=== PATIENT | male | born 1960 | race Caucasian/White ===

== ENCOUNTER 2016-02-29 02:02 | Emergency (ER) ==
[2016-02-29 02:13] VITALS: BP 157/66
--- NOTE | 2016-02-29 02:30 | PROVIDER DOCUMENTATION ---
HPI-General Adult - General Source: patient <Juan Jose Mares - Last Filed: 02/29/16 03:37> - General Source: patient - History of Present Illness -Gen Adult Nature of Presenting Problems: 55 y/o m presents to the ed with flu symptoms X 4 days. pt states he has congestion but denies sore throat. pt also states he has chills but denies any fever. Location of Pain/Injury: reports: generalized Quality of Pain: reports: aching Severity: reports: mild Onset/Duration: reports: 4 days ago Timing: reports: still present Associated Symptoms: reports: fever/chills, sinus congestion/drainage Similar Symptoms Previously?: No Recently seen or treated by another doctor?: No <Tayler Johnson - Last Filed: 02/29/16 12:55> - General Chief Complaint: Cold Symptoms Stated Complaint: FLU SX, BURNING RASH ON RT LEG Time Seen by Provider: 02/29/16 02:19 Allergies/Adverse Reactions: Patient Allergies Allergy/AdvReac Type Severity Reaction Status Date / Time strawberry [[place]] Allergy ANAPHYLAXIS Verified 02/29/16 02:40 Review of Systems - Adult - REVIEW OF SYSTEMS - ADULT Constitutional: reports: chills. denies: fever Ears, Nose, Mouth & Throat: denies: throat pain, throat swelling Respiratory: denies: shortness of breath, wheezing <Tayler Johnson - Last Filed: 02/29/16 12:55> Past History - Adult - PAST MEDICAL HISTORY-ADULT Review of Records: reports: Old Records Reviewed, Nursing Assessment Review, Medications Reviewed Cardiovascular: reports: HTN, other (perip edema). denies: blood clots Genitourinary: reports: kidney stones - IMMUNIZATION STATUS Childhood Immunizations: See Nurse Assessment Flu Vaccine: See Nurse Assessment - SOCIAL HISTORY Smoking: cigarettes, greater than 1 pack/day Provider spent 3-5 mins advising pt. on dangers of tobacco.: Discussed manners to quit use, and f/u contacts for add'l counseling. <Tayler Johnson - Last Filed: 02/29/16 12:55> Physical Exam-General - MUSCULOSKELETAL Extremity: other (peripheral vascular disease changes with edema and induration , no homans) <Juan Jose Mares - Last Filed: 02/29/16 03:37> - PHYSICAL EXAM-ADULT Initial Vital Signs Reviewed: Yes - CONSTITUTIONAL General Appearance: alert, no apparent distress - EYES Eyes: PERRL/EOMI, pink conjunctivae, fundi clear, no AV nicking - HEAD, EARS, NOSE, MOUTH & THROAT HENMT: normocephalic/atraumatic, moist mucous membranes, normal ENT inspection - NECK Neck: non-tender, full range of motion, supple - RESPIRATORY Respiratory: chest non-tender, lungs clear, normal breath sounds - CARDIOVASCULAR Cardiovascular: normal peripheral pulses, regular rate, rhythm - GASTROINTESTINAL (ABDOMEN) Abdominal Exam: normal bowel sounds, non tender, soft - MUSCULOSKELETAL Back Exam: normal inspection - SKIN Integumentary: normal color, normal turgor, warm/dry - PSYCHIATRIC Psych/Mental Status: normal mood/affect, normal thought content, normal thought process, oriented x 3 <Tayler Johnson - Last Filed: 02/29/16 12:55> Departure - Departure Certified Medical Emergency: Emergent <Juan Jose Mares - Last Filed: 02/29/16 03:37> - Departure Time of Disposition Order: 03:30 <Tayler oJhnson - Last Filed: 02/29/16 12:55> - Departure DIAGNOSIS: Flu-like symptoms, Peripheral vascular disease Disposition: HOME 01 Condition: Stable Additional Instructions: take tylenol and motrin for pain and fever, followup with primary care provider for further managment of leg swelling and redness Prescriptions: Cephalexin [Keflex] 500 mg PO TID #21 capsule Referrals: None,PCP [Primary Care Provider] - Instructions: Peripheral Vascular Disease, [id number], Upper Respiratory Infection, Adult, [id number] Attestation - Scribe Verification/Attestation Scribe:: Tayler Johnson Acting as Scribe for:: Red Gan Scribe documention review:: This chart was documented by a scribe and accurately reflects the service the provider performed and the decisions made by the provider. <Tayler Johnson - Last Filed: 02/29/16 12:55> Physician Attestation
[2016-02-29] MEDS ORDERED: KEFLEX PO ONE (03:05)
== END 2016-02-29 03:16 | disposition home or self-care (01) ==
LOC: ED 02:02
DX: J11.1 Influenza due to unidentified influenza virus with other respiratory manifestations (principal); I73.9 Peripheral vascular disease, unspecified; R09.81 Nasal congestion; R68.83 Chills (without fever); R21 Rash and other nonspecific skin eruption; I10 Essential (primary) hypertension; F17.210 Nicotine dependence, cigarettes, uncomplicated; Z71.6 Tobacco abuse counseling; Z87.442 Personal history of urinary calculi
CPT/HCPCS: 87804; 99283